=== PATIENT | female | born 1925 | race African-American/Black ===

== ENCOUNTER 2016-10-12 02:56 | Emergency (ER) | payer MEDICARE, MEDICAID ==
[2016-10-12] MEDS ORDERED: NITROGLYCERIN 2% OINTMENT 1 GM PACKET TP ONE (03:17)
--- NOTE | 2016-10-12 03:17 | ER Document Report ---
ED Cardiac - General Mode of Arrival: Medic Information source: Patient, Relative - daughter TRAVEL OUTSIDE OF THE [place] IN LAST 30 DAYS: No - HPI Was the onset of pain: Sudden Cardiac risk factors: Diabetes, Hypertension Similar symptoms previously: Yes Recently seen / treated by doctor: No <AMI SCHNEIDER - Last Filed: 10/12/16 05:12> <ILEANA IBARRA - Last Filed: 10/12/16 05:55> <ANGEL MARLEY - Last Filed: 10/12/16 10:02> - General Chief Complaint: Chest Pain Stated Complaint: CHEST PAIN Time Seen by Provider: 10/12/16 03:00 Notes: Patient is an 89 year old female presenting to the emergency department for burning pressure between her breasts. Patient states she woke up with this pain. Patient's daughter states that the patient has had this pain waxing and waning for over 2 weeks. Patient received 2 sublingual nitroglycerin and 325 mg aspirin from EMS which relieved her pain. Patient has a history of GERD however she states this seems different than that. Patient has a history of diabetes mellitus, hypertension, and GERD. Patient's primary care physician is Dr. Bueno. (AMI SCHNEIDER) - Related Data Allergies/Adverse Reactions: iodine [Iodine] Allergy (Unknown, Verified 09/30/15 16:44) Sulfa (Sulfonamide Antibiotics) Allergy (Unknown, Verified 09/30/15 16:44) Penicillins Allergy (Verified 09/30/15 16:44) Home Medications: Current Home Medications Amlodipine Besylate 5 mg PO DAILY 10/12/16 [History] Cilostazol [Cilostazol] 1 tab PO BID 10/12/16 [History] Esomeprazole Magnesium 40 mg PO DAILY 10/12/16 [History] Gabapentin [Neurontin 100 mg Capsule] 100 mg PO DAILY 10/12/16 [History] Losartan Potassium 50 mg PO DAILY 10/12/16 [History] Ondansetron HCl [Zofran 4 mg Tablet] 1 tab PO Q6H PRN 10/12/16 [History] Past Medical History - General Information source: Relative - daughter - Social History Smoking Status: Never Smoker Cigarette use (# per day): No Chew tobacco use (# tins/day): No Frequency of alcohol use: None Drug Abuse: None Family History: Arthritis, CAD, CVA, DM, Hyperlipidemia, Hypertension - Past Medical History Cardiac Medical History: Reports: Hx Congestive Heart Failure - pt/family unsure , Hx Hypertension Endocrine Medical History: Reports: Hx Diabetes Mellitus Type 2 Renal/ Medical History: Reports: Hx Renal Insufficiency GI Medical History: Reports: Hx Diverticulitis, Hx Gastroesophageal Reflux Disease Musculoskeltal Medical History: Reports Hx Arthritis, Reports Hx Musculoskeletal Deformity Psychiatric Medical History: Reports: Hx Depression Past Surgical History: Reports: Hx Hysterectomy, Hx Neurologic Surgery - Brain tumor removed 1999, Hx Orthopedic Surgery - back surgery - Immunizations Hx Diphtheria, Pertussis, Tetanus Vaccination: Yes Hx Pneumococcal Vaccination: 05/10/12 <AMI SCHNEIDER - Last Filed: 10/12/16 05:12> Review of Systems - Review of Systems Constitutional: No symptoms reported EENT: No symptoms reported Cardiovascular: See HPI, Chest pain Respiratory: No symptoms reported Gastrointestinal: No symptoms reported Genitourinary: No symptoms reported Female Genitourinary: No symptoms reported Musculoskeletal: No symptoms reported Skin: No symptoms reported Hematologic/Lymphatic: No symptoms reported Neurological/Psychological: No symptoms reported -: Yes All other systems reviewed and negative <AMI SCHNEIDER - Last Filed: 10/12/16 05:12> Physical Exam <AMI SCHNEIDER - Last Filed: 10/12/16 05:12> <ILEANA IBARRA - Last Filed: 10/12/16 05:55> <ANGEL MARLEY - Last Filed: 10/12/16 10:02> - Vital signs Vitals: Resp BP Pulse Ox 15 176/86 H 97 10/12/16 03:11 10/12/16 03:11 10/12/16 03:11 - Notes Notes: GENERAL: Alert, interacts well. No acute distress. HEAD: Normocephalic, atraumatic. EYES: Pupils equal, round, and reactive to light. Extraocular movements intact. ENT: Oral mucosa moist, tongue midline. NECK: Full range of motion. Supple. Trachea midline. LUNGS: Clear to auscultation bilaterally, no wheezes, rales, or rhonchi. No respiratory distress. HEART: Regular rate and rhythm. No murmurs, gallops, or rubs. ABDOMEN: Soft, non-tender. Non-distended. Bowel sounds present in all 4 quadrants. EXTREMITIES: Moves all 4 extremities spontaneously. No edema, radial and dorsalis pedis pulses 2/4 bilaterally. No cyanosis. NEUROLOGICAL: Alert and oriented x3. Normal speech. SKIN: Warm, dry, normal turgor. No rashes or lesions noted. (AMI SCHNEIDER) Course - Laboratory Result Diagrams: 10/12/16 03:10 10/12/16 03:10 - Consults [facility] Time consulted: 04:22 <AMI SCHNEIDER - Last Filed: 10/12/16 05:12> - Laboratory Result Diagrams: 10/12/16 03:10 10/12/16 03:10 <ILEANA IBARRA - Last Filed: 10/12/16 05:55> - Laboratory Result Diagrams: 10/12/16 03:10 10/12/16 03:10 <ANGEL MARLEY - Last Filed: 10/12/16 10:02> - Re-evaluation Re-evalutation: 10/12/16 05:18 10/12/16 05:21 CBC unremarkable, CMP grossly unremarkable only mildly low CO2 and slightly elevated glucose. Positive troponin of 0.485 indicates a non-STEMI, chest x- ray unremarkable. Chest pain initially resolved with nitroglycerin however returned after being given nitro paste. EMS gave aspirin. Called and discussed patient with hospitalist from [facility] who agreed to accept the patient to her service. Requests a phone call back if troponin significantly increases on second troponin. Agrees with starting Lovenox, metoprolol and as the patient's pain has returned despite nitro paste starting nitro drip as well. (ILEANA IBARRA) 10/12/16 09:47 third set of troponins have increased , medic is here for transport, report ekg dose noted elevated V3 and V4 which is changed, medic per his protocol is calling a stemi alert, i have oc[facility]acted [facility] ot speak with cardiology in regards to giving thrombolytic or not. 10/12/16 09:[address] Dr Chaudhry cardiology , he wishes to defer on thrombolytics, requests pt go to director of cardiac cath lab and ekg to be faxed. I beleive this is appropriate since helicopter is landing in the next few min (ANGEL MARLEY) - Vital Signs Vital signs: Temp Pulse Resp BP Pulse Ox 98.3 F 23 H 149/72 H 95 10/12/16 07:48 10/12/16 09:01 10/12/16 09:01 10/12/16 09:01 - Laboratory Laboratory results interpreted by me: 10/12/16 10/12/16 03:10 03:10 Carbon Dioxide 20 L Est GFR (Non-Af Amer) 53 L Glucose 129 H CK-MB (CK-2) 6.27 H - EKG Interpretation by Me Additional EKG results interpreted by me: 10/12/16 05:14 EKG shows left bundle branch block which is old, sinus rhythm, rate of 82, ST segment depressions in lead II, multifocal PVCs, no ST elevations per my interpretation. (ILEANA IBARRA) - Consults [facility] Reason for consultation: 10/12/16 04:22 Called [facility] for possible transfer, they will call back. 10/12/16 05:06 Call back from [facility], Dr. Kamila Brower will accept the patient for transfer. (AMI SCHNEIDER) Critical Care Note - Critical Care Note Total time excluding time spent on procedures (mins): 45 <ILEANA IBARRA - Last Filed: 10/12/16 05:55> Discharge <AMI SCHNEIDER - Last Filed: 10/12/16 05:12> <ILEANA IBARRA - Last Filed: 10/12/16 05:55> <ANGEL MARLEY - Last Filed: 10/12/16 10:02> - Discharge Clinical Impression: Non-STEMI (non-ST elevated myocardial infarction) Hypertension Qualifiers: Hypertension type: renovascular hypertension Qualified Code(s): I15.0 - Renovascular hypertension Condition: Fair Disposition: [facility] Referrals: RAÚL BUENO MD [Primary Care Provider] - Follow up as needed Scribe Attestation: 10/12/16 05:55 I personally performed the services described in the documentation, reviewed and edited the documentation which was dictated to the scribe in my presence, and it accurately records my words and actions. (ILEANA IBARRA) Scribe Documentation - Scribe Written by Scribe:: Gina Cedeno, 10/12/2016 5:00 acting as scribe for :: Niurka <AMI SCHNEIDER - Last Filed: 10/12/16 05:12>
[2016-10-12 03:28] LABS: ABSOLUTE BASOPHILS # (AUTO) 0.1 10^3/uL (0.0-0.2); ABSOLUTE EOSINOPHILS # (AUTO) 0.2 10^3/uL (0.0-0.6); ABSOLUTE LYMPHOCYTES (AUTO) 1.9 10^3/uL (0.5-4.7); ABSOLUTE MONOCYTES (AUTO) 0.4 10^3/uL (0.1-1.4); ABSOLUTE NEUT (AUTO) 4.3 10^3/uL (1.7-8.2); BASOPHILS % (AUTO) 0.8 % (0-2); EOSINOPHILS % (AUTO) 2.9 % (0-6); HEMATOCRIT 40.1 % (36.0-47.0); HEMOGLOBIN 13.5 g/dL (12.0-15.5); HGB HCT DIFFERENCE 0.4; LYMPHOCYTES % (AUTO) 27.6 % (13-45); MEAN CORPUSCULAR HEMOGLOBIN 29.4 pg (27.0-33.4); MEAN CORPUSCULAR HGB CONC 33.6 g/dL (32.0-36.0); MEAN CORPUSCULAR VOLUME 87 fl (80-97); MONOCYTES % (AUTO) 6.5 % (3-13); RED BLOOD COUNT 4.58 10^6/uL (3.72-5.28); RED CELL DISTRIBUTION WIDTH 13.7 % (11.5-14.0); SEGMENTED NEUTROPHILS % (AUTO) 62.2 % (42-78); WHITE BLOOD COUNT 6.8 10^3/uL (4.0-10.5)
[2016-10-12 03:50] LABS: ALANINE AMINOTRANSFERASE 23 U/L (9-52); ALBUMIN 4.1 g/dL (3.5-5.0); ALKALINE PHOSPHATASE 104 U/L (38-126); ANION GAP 15 (5-19); ASPARTATE AMINO TRANSFERASE 28 U/L (14-36); BILIRUBIN,DIRECT 0.3 mg/dL (0.0-0.4); BILIRUBIN,TOTAL 0.5 mg/dL (0.2-1.3); BLOOD UREA NITROGEN 18 mg/dL (7-20); CALCIUM 9.6 mg/dL (8.4-10.2); CARBON DIOXIDE 20 mmol/L (22-30); CHLORIDE 105 mmol/L (98-107); CREATINE KINASE 127 U/L (30-135); CREATININE RESULT 0.99 mg/dL (0.52-1.25); GLUCOSE 129 mg/dL (75-110); POTASSIUM 3.7 mmol/L (3.6-5.0); SODIUM 139.6 mmol/L (137-145); TOTAL PROTEIN 7.3 g/dL (6.3-8.2)
[2016-10-12 04:01] LABS: CREATINE KINASE MB 6.27 ng/mL (<4.55)
[2016-10-12 04:03] LABS: TROPONIN I 0.485 ng/mL
[2016-10-12] MEDS ORDERED: METOPROLOL TARTRATE 50 MG TABLET PO ONE (04:50)
[2016-10-12] MEDS ORDERED: NITROGLYCERIN/D5W 250 ML IV PRN (04:54)
[2016-10-12] MEDS ORDERED: ENOXAPARIN SODIUM INJ 80 MG/0.8 ML DISP.SYRIN SUBCUT SCH (05:00)
[2016-10-12 09:10] VITALS: BP 149/72
--- NOTE | 2016-10-12 10:40 | EKG REPORT ---
SEVERITY:- ABNORMAL ECG - SINUS RHYTHM MULTIFORM VENTRICULAR PREMATURE COMPLEXES LEFT BUNDLE BRANCH BLOCK : Confirmed by: Maria G Lou MD 12-Oct-2016 10:40:12
--- NOTE | 2016-10-12 10:40 | EKG REPORT ---
SEVERITY:- ABNORMAL ECG - SINUS RHYTHM FIRST DEGREE AV BLOCK LEFT BUNDLE BRANCH BLOCK : Confirmed by: Maria G Lou MD 12-Oct-2016 10:40:02
== END 2016-10-12 10:05 | disposition short-term general hospital (02) ==
LOC: ER 02:56
DX: I21.4 Non-ST elevation (NSTEMI) myocardial infarction (principal); I15.0 Renovascular hypertension; R07.9 Chest pain, unspecified; K21.9 Gastro-esophageal reflux disease without esophagitis; E11.9 Type 2 diabetes mellitus without complications; I10 Essential (primary) hypertension; Z79.899 Other long term (current) drug therapy
CPT/HCPCS: 93005; 99291; 96375; 96365; 96366; 36415; 82553; 82550; 85025; 80053; 84484; 71010; 93010; A9270 ×2; J3490; J1650

== ENCOUNTER → 2016-11-03 | Outpatient (CLI) | payer MEDICARE, MEDICAID ==
[2016-11-03 10:26] LABS: HEMATOCRIT 39.7 % (36.0-47.0); HGB HCT DIFFERENCE -0.7; MEAN CORPUSCULAR HEMOGLOBIN 29.3 pg (27.0-33.4); MEAN CORPUSCULAR HGB CONC 32.9 g/dL (32.0-36.0); MEAN CORPUSCULAR VOLUME 89 fl (80-97); RED BLOOD COUNT 4.45 10^6/uL (3.72-5.28); RED CELL DISTRIBUTION WIDTH 13.6 % (11.5-14.0); WHITE BLOOD COUNT 5.2 10^3/uL (4.0-10.5)
[2016-11-03 10:50] LABS: ANION GAP 16 (5-19); BLOOD UREA NITROGEN 21 mg/dL (7-20); CALCIUM 9.7 mg/dL (8.4-10.2); CARBON DIOXIDE 19 mmol/L (22-30); CHLORIDE 109 mmol/L (98-107); CREATININE RESULT 0.98 mg/dL (0.52-1.25); GLUCOSE 104 mg/dL (75-110); POTASSIUM 4.4 mmol/L (3.6-5.0); SODIUM 143.7 mmol/L (137-145)
== END ==
LOC: OD 09:25
PROVIDERS: ATTEND Internal Medicine Nephrology
DX: I12.9 Hypertensive chronic kidney disease with stage 1 through stage 4 chronic kidney disease, or unspecified chronic kidney disease (principal); N18.3 Chronic kidney disease, stage 3 (moderate); E87.5 Hyperkalemia
CPT/HCPCS: 36415; 80048; 85027

== ENCOUNTER 2017-03-02 12:55 | Emergency (ER) | payer MEDICARE, MEDICAID ==
[2017-03-02] MEDS ORDERED: NITROGLYCERIN 2% OINTMENT 1 GM PACKET TP ONE (13:12)
--- NOTE | 2017-03-02 13:29 | ER Document Report ---
ED Cardiac - General Mode of Arrival: Medic Information source: Patient TRAVEL OUTSIDE OF THE [place] IN LAST 30 DAYS: No - HPI Patient complains to provider of: Other - epigastric burning, chest "burning" Use of: denies: Alcohol, Amphetamines, Bath salts, Caffeine, Cocaine, Decongestants, Other Was the onset of pain: Sudden - at 1215 today When did pain begin: 1215 today Is the pain a: New problem Chest pain location: Substernal - and epigastric Quality of pain: Burning Chest pain radiation location: denies: Left jaw, Left arm, Left shoulder, Right jaw, Right arm, Right shoulder, Back, Neck, None Severity now: Mild Pain level currently: 2 Chest pain precipitating factors: unknown Cardiac risk factors: Diabetes, Hypertension, Hx RI - September.. denies: Smoker Positive cardiac history: Yes Associated symptoms: Abdominal pain - epigastric, Diaphoresis - earlier today and yesterday., Heartburn. denies: None, Anxiety, Back pain, Cool extremities, Dizziness, Edema, Fatigue, Fever/chills, Headache, Hypotension, Jaw pain, Lightheaded, Nausea/vomiting, Neck pain, Palpitations, Rash, Shortness of breath , Swelling/lump in chest, Syncope, Weakness, Other Exacerbated by: Denies Relieved by: NTG - at home helped Similar symptoms previously: Yes - with RI in September. Recently seen / treated by doctor: Yes - had pacemaker placed reported on the Jan <PABLO RODRIGUEZ - Last Filed: 03/02/17 18:59> <DAKOTA JUAREZ - Last Filed: 03/02/17 19:22> - General Chief Complaint: Chest Pain Stated Complaint: CHEST BURNING Time Seen by Provider: 03/02/17 13:00 - Related Data Allergies/Adverse Reactions: iodine [Iodine] Allergy (Unknown, Verified 09/30/15 16:44) Sulfa (Sulfonamide Antibiotics) Allergy (Unknown, Verified 09/30/15 16:44) Penicillins Allergy (Verified 09/30/15 16:44) Past Medical History - Social History Smoking Status: Never Smoker Chew tobacco use (# tins/day): No Frequency of alcohol use: None Drug Abuse: None Family History: Arthritis, CAD, CVA, DM, Hyperlipidemia, Hypertension - Past Medical History Cardiac Medical History: Reports: Hx Congestive Heart Failure - pt/family unsure , Hx Hypertension Pulmonary Medical History: Denies: Hx Tuberculosis Neurological Medical History: Denies: Hx Seizures Endocrine Medical History: Reports: Hx Diabetes Mellitus Type 2 Renal/ Medical History: Reports: Hx Renal Insufficiency GI Medical History: Reports: Hx Diverticulitis, Hx Gastroesophageal Reflux Disease Musculoskeltal Medical History: Reports Hx Arthritis, Reports Hx Musculoskeletal Deformity Psychiatric Medical History: Reports: Hx Depression Past Surgical History: Reports: Hx Hysterectomy, Hx Neurologic Surgery - Brain tumor removed 1999, Hx Orthopedic Surgery - back surgery. Denies: Hx Pacemaker - Immunizations Hx Diphtheria, Pertussis, Tetanus Vaccination: Yes Hx Pneumococcal Vaccination: 05/10/12 <PABLO RODRIGUEZ - Last Filed: 03/02/17 18:59> Review of Systems <PABLO RODRIGUEZ - Last Filed: 03/02/17 18:59> <DAKOTA JUAREZ - Last Filed: 03/02/17 19:22> - Review of Systems Notes: REVIEW OF SYSTEMS: CONSTITUTIONAL : Denies fever, chills, or sweats. Denies recent illness. EENT: Denies eye, ear, throat, or mouth pain or symptoms. Denies nasal or sinus congestion or discharge. Denies throat, tongue, or mouth swelling or difficulty swallowing. CARDIOVASCULAR: see hpi RESPIRATORY: Denies cough, cold, or chest congestion. Denies shortness of breath, difficulty breathing, or wheezing. GASTROINTESTINAL: see hpi GENITOURINARY: Denies difficulty urinating, painful urination, burning, frequency, blood in urine, or discharge. MUSCULOSKELETAL: Denies back or neck pain or stiffness. Denies joint pain or swelling. SKIN: Denies rash, lesions or sores. NEUROLOGICAL: Denies confusion or altered mental status. Denies passing out or loss of consciousness. Denies dizziness or lightheadedness. Denies headache. Denies weakness or paralysis or loss of use of either side. Denies problems with gait or speech. Denies sensory loss, numbness, or tingling. ALL OTHER SYSTEMS REVIEWED AND NEGATIVE. Dictation was performed using [employer] voice recognition software (PABLO RODRIGUEZ) Physical Exam <PABLO RDORIGUEZ - Last Filed: 03/02/17 18:59> <DAKOTA JUAREZ - Last Filed: 03/02/17 19:22> - Vital signs Vitals: Resp Pulse Ox 19 100 03/02/17 13:04 03/02/17 13:04 Notes: PHYSICAL EXAMINATION: GENERAL: Well-appearing, well-nourished and in no acute distress. A&Ox4 HEAD: Atraumatic, normocephalic. EYES: Pupils equal round and reactive to light, extraocular movements intact, sclera anicteric, conjunctiva are normal. ENT: Nares patent and without discharge. oropharynx clear without exudates. No tonsilar hypertrophy or erythema. Moist mucous membranes. No sinus tenderness. NECK: Normal range of motion, supple without lymphadenopathy Chest: no tenderness. equal rise and fall. no flail chest LUNGS: Breath sounds clear to auscultation bilaterally and equal. No wheezes rales or rhonchi. HEART: Regular rate and rhythm without murmurs, rubs, gallops. ABDOMEN: Soft, nontender, nondistended abdomen. No guarding, no rebound. No masses appreciated. Normal bowel sounds present. No CVA tenderness bilaterally. Musculoskeletal: FROM to passive/active. Strength 5+/5. Extremities: No cyanosis, clubbing, or edema b/l. Peripheral pulses 2+. Capillary refill less than 3 seconds. NEUROLOGICAL: Cranial nerves grossly intact. Normal speech. Normal sensory, motor exams PSYCH: Normal mood, normal affect. SKIN: Warm, Dry, normal turgor, no rashes or lesions noted. (PABLO RODRIGUEZ) Course - Laboratory Result Diagrams: 03/02/17 13:20 03/02/17 13:20 <PABLO RODRIGUEZ - Last Filed: 03/02/17 18:59> - Laboratory Result Diagrams: 03/02/17 13:20 03/02/17 13:20 <DAKOTA JUAREZ - Last Filed: 03/02/17 19:22> - Re-evaluation Re-evalutation: 03/02/17 13:[address] Lopez who also eval'd the patient. Cardiac work up Nitro paste Twave/EKG changes noted 03/02/17 14:46 [facility] Negative first cardiac enzymes Vitals stable Asymptomatic with nitropaste applied CXR unremarkable 03/02/17 14:59 Dr. Pereira accepted patient [facility] full, reviewed with Dr. Lopez who agreed to routine transport within 24 hours to [facility] in lieu of rapid transport as patient is currently asymptomatic and stable with neg 1st cardiacs. Reviewed with family/pt who is in agreement EMTALA form filled out and signed. Pending transfer. Will order serial EKG/Cardiacs. 03/02/17 15:52 2nd EKG/Trop unremarkable for acute changes. Pt continues to be asymptomatic with nitropaste still applied Vitals are stable No new concerns or complaints Transfer care to [place] ROBINS at bedside. (PABLO RODRIGUEZ) 03/02/17 19:22 Patient resting comfortably, denies pain, vital signs with no significant change , EMS a few minutes away by report, stable for transfer. (DAKOTA JUAREZ) - Vital Signs Vital signs: Temp Pulse Resp BP Pulse Ox 15 126/114 H 99 03/02/17 19:07 03/02/17 19:07 03/02/17 19:07 - Laboratory Laboratory results interpreted by me: 03/02/17 03/02/17 03/02/17 13:20 13:20 16:25 Plt Count 141 L AST 39 H Urine Blood SMALL H Ur Leukocyte Esterase TRACE H Discharge <PABLO RODRIGUEZ - Last Filed: 03/02/17 18:59> <DAKOTA JUAREZ - Last Filed: 03/02/17 19:22> - Discharge Clinical Impression: Chest pain Qualifiers: Chest pain type: unspecified Qualified Code(s): R07.9 - Chest pain, unspecified Condition: Stable [facility] Referrals: RAÚL ROBERSON MD [Primary Care Provider] - Follow up as needed
[2017-03-02 13:45] LABS: ABSOLUTE BASOPHILS # (AUTO) 0.1 10^3/uL (0.0-0.2); ABSOLUTE EOSINOPHILS # (AUTO) 0.4 10^3/uL (0.0-0.6); ABSOLUTE LYMPHOCYTES (AUTO) 1.9 10^3/uL (0.5-4.7); ABSOLUTE MONOCYTES (AUTO) 0.6 10^3/uL (0.1-1.4); ABSOLUTE NEUT (AUTO) 4.1 10^3/uL (1.7-8.2); BASOPHILS % (AUTO) 1.3 % (0-2); EOSINOPHILS % (AUTO) 5.2 % (0-6); HEMATOCRIT 40.6 % (36.0-47.0); HEMOGLOBIN 13.6 g/dL (12.0-15.5); HGB HCT DIFFERENCE 0.2; LYMPHOCYTES % (AUTO) 27.3 % (13-45); MEAN CORPUSCULAR HEMOGLOBIN 29.8 pg (27.0-33.4); MEAN CORPUSCULAR HGB CONC 33.6 g/dL (32.0-36.0); MEAN CORPUSCULAR VOLUME 89 fl (80-97); MONOCYTES % (AUTO) 8.6 % (3-13); RED BLOOD COUNT 4.57 10^6/uL (3.72-5.28); RED CELL DISTRIBUTION WIDTH 13.7 % (11.5-14.0); SEGMENTED NEUTROPHILS % (AUTO) 57.6 % (42-78); WHITE BLOOD COUNT 7.1 10^3/uL (4.0-10.5)
--- NOTE | 2017-03-02 14:01 | RADIOLOGY REPORT (SQ) ---
EXAM DESCRIPTION: CHEST SINGLE VIEW COMPLETED DATE/TIME: 03/02/2017 1:52 pm REASON FOR STUDY: chest pain, epigastric pain COMPARISON: 10/12/2016 EXAM PARAMETERS: NUMBER OF VIEWS: One view. TECHNIQUE: Single frontal radiographic view of the chest acquired. RADIATION DOSE: NA LIMITATIONS: None. FINDINGS: LUNGS AND PLEURA: No opacities, masses or pneumothorax. No pleural effusion. 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 HEART AND VASCULAR STRUCTURES: Heart normal in size. Normal vasculature. BONES: No acute findings. HARDWARE: Pacing defibrillator leads intact. OTHER: No other significant finding. IMPRESSION: No acute findings. No interval change. 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
[2017-03-02 14:15] LABS: ALANINE AMINOTRANSFERASE 22 U/L (9-52); ALBUMIN 4.3 g/dL (3.5-5.0); ALKALINE PHOSPHATASE 88 U/L (38-126); ANION GAP 13 (5-19); ASPARTATE AMINO TRANSFERASE 39 U/L (14-36); BILIRUBIN,DIRECT 0.4 mg/dL (0.0-0.4); BLOOD UREA NITROGEN 19 mg/dL (7-20); CALCIUM 10.1 mg/dL (8.4-10.2); CARBON DIOXIDE 22 mmol/L (22-30); CHLORIDE 104 mmol/L (98-107); CREATINE KINASE 51 U/L (30-135); CREATININE RESULT 0.85 mg/dL (0.52-1.25); GLUCOSE 96 mg/dL (75-110); POTASSIUM 4.4 mmol/L (3.6-5.0); TOTAL PROTEIN 7.7 g/dL (6.3-8.2)
[2017-03-02 14:16] LABS: CREATINE KINASE MB 0.46 ng/mL (<4.55); TROPONIN I 0.014 ng/mL
[2017-03-02] MEDS ORDERED: NORMAL SALINE 1000 ML 1,000 ML IV PRN (14:58)
[2017-03-02 16:47] LABS: APPEARANCE,URINE CLEAR; BILIRUBIN,URINE NEGATIVE (NEGATIVE); GLUCOSE, URINE NEGATIVE (NEGATIVE); KETONES,URINE NEGATIVE (NEGATIVE); LEUKOCYTE ESTERASE,URINE TRACE (NEGATIVE); NITRITE,URINE NEGATIVE (NEGATIVE); PROTEIN,URINE NEGATIVE (NEGATIVE); URINE SPECIFIC GRAVITY 1.005; UROBILINOGEN,URINE NEGATIVE mg/dL (<2.0)
[2017-03-02 19:40] VITALS: BP 162/90
--- NOTE | 2017-03-03 09:04 | EKG REPORT ---
SEVERITY:- ABNORMAL ECG - ATRIAL-SENSED VENTRICULAR-PACED COMPLEXES NONSPECIFIC INTRAVENTRICULAR CONDUCTION DELAY : Confirmed by: Maria G Lou MD 03-Mar-2017 09:03:47
--- NOTE | 2017-03-03 09:04 | EKG REPORT ---
SEVERITY:- ABNORMAL ECG - ATRIAL-SENSED VENTRICULAR-PACED RHYTHM : Confirmed by: Maria G Lou MD 03-Mar-2017 09:03:42
== END 2017-03-02 20:05 | disposition short-term general hospital (02) ==
LOC: ER 12:55
DX: R07.89 Other chest pain (principal); R12 Heartburn; I10 Essential (primary) hypertension; E11.9 Type 2 diabetes mellitus without complications; Z88.2 Allergy status to sulfonamides; Z88.0 Allergy status to penicillin
CPT/HCPCS: 93005; 99285; 36415; 82553; 82550; 83690; 85025; 80053; 81001; 84484; 71010; 93010; A9270